=== PATIENT | female | born 1950 | race Caucasian/White ===

== ENCOUNTER 2018-01-10 17:45 | Inpatient (IN) | payer MEDICARE ==
[~2018-01-10] VITALS: Ht 160 cm; Wt 113.4 kg
[~2018-01-10 17:45] MED LIST: AMITRIPTYLINE H10 M3 PO; IMITREX100 MG PO; PANTOPRAZOLE SO40 M1 PO; PREDNISONE 20 M20 M1 PO; PROAIR HFA8.5 GM PO; PROPRANOLOL 1010 MG PO; SINGULAIR 10 MG10 M1 PO; TORADOL 10 MG T10 MG PO
[2018-01-10 17:47] VITALS: BP 163/104
[2018-01-10] MEDS ORDERED: SUMATRIPTAN-NA1 EACH PO (17:55)
[2018-01-10 18:37] LABS: APTT 26.8 Seconds (25.0-31.3); INR 0.9; PROTIME 9.7 Seconds (9.20-11.50)
[2018-01-10 18:42] LABS: ANION GAP 14 mmol/L (7-16); BUN 8 mg/dL (7-18); CALCIUM 9.1 mg/dL (8.5-10.1); CHLORIDE 102 mmol/L (98-107); CO2 22 mmol/L (21-32); CREATININE 1.1 mg/dL (0.6-1.3); GLUCOSE 213 mg/dL (70-99); POTASSIUM 3.6 mmol/L (3.5-5.1); SODIUM 138 mmol/L (136-145)
[2018-01-10 19:00] LABS: ALBUMIN 4.2 g/dL (3.4-5.0); ALKALINE PHOSPHATASE 102 U/L (46-116); CK-MB MASS < 0.5 ng/mL (<0.5-3.6); LIPASE 65 U/L (73-393); MAGNESIUM 1.8 mg/dL (1.8-2.4); NT-PRO BRAIN NAT PEPTIDE 364 pg/mL (<300); SGOT 28 U/L (15-37); SGPT 46 U/L (30-65); TOTAL BILIRUBIN 0.6 mg/dL (<0.1-1.0); TOTAL PROTEIN 8.1 g/dL (6.4-8.2); TROPONIN-I LEVEL <0.06 ng/mL (<0.06)
[2018-01-10 19:26] LABS: ABSOLUTE BASOPHILS 0.1 thou/uL (0.0-0.2); ABSOLUTE LYMPHOCYTES 1.6 thou/uL (0.8-5.3); ABSOLUTE MONOCYTES 0.8 thou/uL (0.0-1.2); ABSOLUTE NEUTROPHILS 9.2 thou/uL (1.6-8.1); BASOPHILS 0.5 %; EOSINOPHILS 0.3 %; HEMATOCRIT 44.7 % (37.0-47.0); HEMOGLOBIN 14.9 gm/dL (12.0-15.0); LYMPHOCYTES 13.6 %; MCHC 33.4 g/dL (28.0-37.0); MCV 89.6 fL (80.0-100.0); MONOCYTES 7.2 %; MPV 9.1 fl. (7.2-11.1); NUCLEATED RBCS 0 /100WBC; PLATELET COUNT* 271 thou/uL (150-400); POLYS 78.4 %; RBC 4.98 mil/uL (4.20-5.00); RDW-CV 13.9 % (10.5-14.5); WBC 11.7 thou/uL (4.0-11.0)
[2018-01-10 21:15] VITALS: BP 126/72
[2018-01-10 21:30] VITALS: BP 156/70
[2018-01-11] VITALS: BP 102/67
[2018-01-11 04:00] VITALS: BP 145/69
[2018-01-11 05:01] LABS: HEMATOCRIT 41.7 % (37.0-47.0); HEMOGLOBIN 14.1 gm/dL (12.0-15.0); MCH 30.5 pg (26.0-34.0); MCHC 33.8 g/dL (28.0-37.0); MCV 90.3 fL (80.0-100.0); MPV 9.1 fl. (7.2-11.1); RBC 4.62 mil/uL (4.20-5.00)
[2018-01-11 05:28] LABS: ALBUMIN 3.1 g/dL (3.4-5.0); CALCIUM 8.3 mg/dL (8.5-10.1); CREATININE 0.9 mg/dL (0.6-1.3); POTASSIUM 3.5 mmol/L (3.5-5.1); TOTAL BILIRUBIN 0.4 mg/dL (<0.1-1.0); TOTAL PROTEIN 6.4 g/dL (6.4-8.2)
[2018-01-11] MEDS ORDERED: TORADOL 10 MG T10 MG PO (06:57)
[2018-01-11 08:44] VITALS: BP 125/59
--- NOTE | 2018-01-11 10:04 | EKG ---
[place] [address] ELECTROCARDIOGRAM REPORT Name: SONIA BURGOS Room: [address] ADM IN .R.#: [id number] Admission: 01/10/18 Attend Phys: Rosalind Serrato MD Discharge: Date of : 48 Report #: [id number] THIS REPORT FOR: //name// [facility] ED Test Date: 2018-01-10 Test Time: 17:50:58 Pat Name: SONIA BRUGOS Department: Room: [facility] Gender: F Biofuels Operations Manager: JEREMY : 1950 Requested By: Randy Dhillon Order Number: [id number] MD: Chucky Felix Measurements Intervals [place] Rate: 160 P: 40 PA: 242 QRS: -20 QRSD: 85 T: 38 QT: 263 QTc: 429 Interpretive Statements Supraventricular tachycardia Multiform ventricular premature complexes Borderline left axis deviation Baseline wander in lead(s) II,aVF,V1,V2 Compared to ECG 04/09/2017 11:29:58 Ventricular premature complex(es) now present Sinus tachycardia no longer present Electronically Signed On 01-11-2018 10:04:35 CDT by Chucky Felix [email or web address] <ELECTRONICALLY SIGNED> By: Chucky Felix MD, FACC 01/11/18 1004 1750 1750 Chucky Felix MD, FACC /EPI
--- NOTE | 2018-01-11 10:06 | EKG ---
[place] [address] ELECTROCARDIOGRAM REPORT Name: SONIA BURGOS Room: [address] ADM IN M.R.#: [id number] Admission: 01/10/18 Attend Phys: Rosalind Serrato MD Discharge: Date of : 48 Report #: [id number] THIS REPORT FOR: //name// [facility] ED Test Date: 2018-01-10 Test Time: 21:02:21 Pat Name: SONIA BURGOS Department: Room: [address] Gender: F Video Coordinator: TIMOTHY : 1950 Requested By: Jorge Harding Order Number: [id number] MD: Chucky Felix Measurements Intervals [place] Rate: 99 P: 0 MN: 165 QRS: -8 QRSD: 75 T: -1 QT: 321 QTc: 412 Interpretive Statements Sinus rhythm Probable left atrial enlargement consider Inferior infarct, old poor r wave progression Baseline wander in lead(s) V4 Electronically Signed On 01-11-2018 10:06:07 CDT by Chucky Felix [email or web address] <ELECTRONICALLY SIGNED> By: Chucky Felix MD, [facility] 01/11/18 1006 01 01 Chucky Felix MD, [facility] /EPI
[2018-01-11 12:14] VITALS: BP 124/51
[2018-01-11 16:00] VITALS: BP 131/64
[2018-01-11 20:00] VITALS: BP 145/67; BP 145/83
[2018-01-12 04:00] VITALS: BP 121/65
[2018-01-12 05:14] LABS: ABSOLUTE EOSINOPHILS 0.1 thou/uL (0.0-0.7); ABSOLUTE MONOCYTES 0.9 thou/uL (0.0-1.2); BASOPHILS 0.4 %; EOSINOPHILS 1.2 %; HEMATOCRIT 41.5 % (37.0-47.0); HEMOGLOBIN 13.6 gm/dL (12.0-15.0); LYMPHOCYTES 16.3 %; MCH 29.9 pg (26.0-34.0); MCHC 32.9 g/dL (28.0-37.0); MCV 90.8 fL (80.0-100.0); MONOCYTES 7.9 %; MPV 9.4 fl. (7.2-11.1); NUCLEATED RBCS 0 /100WBC; PLATELET COUNT* 221 thou/uL (150-400); POLYS 74.2 %; RBC 4.57 mil/uL (4.20-5.00); RDW-CV 14.2 % (10.5-14.5); WBC 12.1 thou/uL (4.0-11.0)
[2018-01-12 05:25] LABS: ANION GAP 12 mmol/L (7-16); BUN 9 mg/dL (7-18); CALCIUM 8.4 mg/dL (8.5-10.1); CHLORIDE 103 mmol/L (98-107); CHOLESTEROL 193 mg/dL (<200); CO2 23 mmol/L (21-32); CREATININE 0.9 mg/dL (0.6-1.3); GLUCOSE 201 mg/dL (70-99); HDL CHOLESTEROL 44 mg/dL (>40); LDL CHOLESTEROL 131 mg/dL (<100); POTASSIUM 3.9 mmol/L (3.5-5.1); SODIUM 138 mmol/L (136-145); TC:HDL 4.4 Ratio (Not establshd); TRIGLYCERIDE 94 mg/dL (<150); VLDL 19 mg/dL (<40)
[2018-01-12 05:27] LABS: SERUM ASSESSMENT Clear
[2018-01-12 08:00] VITALS: BP 131/54
[2018-01-12 12:00] VITALS: BP 145/67
--- NOTE | 2018-01-12 15:43 | EKG ---
[place] [address] ELECTROCARDIOGRAM REPORT Name: SONIA BURGOS Room: [address] ADM IN M.R.#: [id number] Admission: 01/10/18 Attend Phys: Rosalind Serrato MD Discharge: Date of : 48 Report #: [id number] THIS REPORT FOR: //name// [facility] Test Date: 2018-01-11 Test Time: 22:18:32 Pat Name: SONIA BURGOS Department: Room: [address] Gender: F Viticulture Teacher: ALEXANDRA : 1950 Requested By: Rosalind Serrato Order Number: [id number] Reading MD: Ludwig Dc Measurements Intervals [place] Rate: 131 P: 55 NM: 275 QRS: -9 QRSD: 101 T: -29 QT: 335 QTc: 495 Interpretive Statements Sinus tachycardia Prolonged NM interval Low voltage, precordial leads Borderline T abnormalities, diffuse leads Borderline prolonged QT interval Compared to ECG 01/10/2018 21:02:21 First degree AV block now present Low QRS voltage now present T-wave abnormality now present Sinus rhythm no longer present Myocardial infarct finding no longer present Poor R-wave progression no longer present Electronically Signed On 01-12-2018 15:43:37 CDT by Ludwig Dc [email or web address] <ELECTRONICALLY SIGNED> By: Ludwig Dc MD, [facility] 01/12/18 1543 2218 2218 Ludwig Dc MD, [facility] /EPI
--- NOTE | 2018-01-12 15:46 | EKG ---
[place] [address] ELECTROCARDIOGRAM REPORT Name: SONIA BURGOS Room: [address] ADM IN M.R.#: [id number] Admission: 01/10/18 Attend Phys: Rosalind Serrato MD Discharge: Date of : 48 Report #: [id number] THIS REPORT FOR: //name// [facility] Test Date: 2018-01-12 Test Time: 08:54:37 Pat Name: SONIA BURGOS Department: Room: [address] Gender: F Analyst Geochemical Prospecting: : 1950 Requested By: Chucky Felix Order Number: [id number] MD: Ludwig Dc Measurements Intervals [place] Rate: 82 P: 21 ME: 181 QRS: -2 QRSD: 57 T: 18 QT: 431 QTc: 504 Interpretive Statements Sinus rhythm Ventricular premature complex Low voltage, precordial leads Borderline repolarization abnormality Prolonged QT interval Baseline wander in lead(s) II,III,aVR,aVF,V2,V3,V5,V6 Compared to ECG 01/10/2018 21:02:21 Ventricular premature complex(es) now present Low QRS voltage now present Prolonged QT interval now present Poor R-wave progression no longer present Electronically Signed On 01-12-2018 15:46:38 CDT by Ludwig Dc [email or web address] <ELECTRONICALLY SIGNED> By: Ludwig Dc MD, [facility] 01/12/18 1546 0854 0854 Ludwig Dc MD, [facility] /EPI
[2018-01-12 15:51] VITALS: BP 139/47
[2018-01-12 17:18] LABS: INFLUENZA A ANTIGEN None Detected (None Detect); INFLUENZA B ANTIGEN None Detected (None Detect)
[2018-01-12 18:03] VITALS: BP 139/47
[2018-01-12 20:00] VITALS: BP 105/58
[2018-01-13] VITALS: BP 125/59
[2018-01-13 02:11] LABS: GLYCOHEMOGLOBIN (HGB A1C) 7.5 % (4.8-5.6)
[2018-01-13 04:00] VITALS: BP 161/71
[2018-01-13 05:46] LABS: HEMATOCRIT 42.5 % (37.0-47.0); HEMOGLOBIN 14.2 gm/dL (12.0-15.0); MCH 30.3 pg (26.0-34.0); MCHC 33.4 g/dL (28.0-37.0); MCV 90.7 fL (80.0-100.0); MPV 9.6 fl. (7.2-11.1); NUCLEATED RBCS 0 /100WBC; PLATELET COUNT* 231 thou/uL (150-400); RBC 4.69 mil/uL (4.20-5.00); RDW-CV 14.1 % (10.5-14.5); WBC 8.4 thou/uL (4.0-11.0)
[2018-01-13 05:53] LABS: ALBUMIN 3.1 g/dL (3.4-5.0); CALCIUM 8.5 mg/dL (8.5-10.1); CREATININE 0.9 mg/dL (0.6-1.3); POTASSIUM 4.3 mmol/L (3.5-5.1); TOTAL BILIRUBIN 0.2 mg/dL (<0.1-1.0); TOTAL PROTEIN 6.9 g/dL (6.4-8.2)
[2018-01-13 06:09] LABS: ABSOLUTE MONOCYTES 0.1 thou/uL (0.0-1.2); ABSOLUTE NEUTROPHILS 7.3 thou/uL (1.6-8.1)
[2018-01-13 06:10] LABS: ANISOCYTOSIS 1+; PLATELET ESTIMATE ADEQUATE; POIKILOCYTOSIS 1+
[2018-01-13 08:00] VITALS: BP 135/65
--- NOTE | 2018-01-13 11:10 | EKG ---
[place] [address] ELECTROCARDIOGRAM REPORT Name: SONIA BURGOS Room: [address] ADM IN M.R.#: [id number] Admission: 01/10/18 Attend Phys: Rosalind Serrato MD Discharge: Date of : 48 Report #: [id number] THIS REPORT FOR: //name// [facility] Test Date: 2018-01-13 Test Time: 08:29:27 Pat Name: SONIA BURGOS Department: Room: [address] Gender: F Neon Tube Bender: : 1950 Requested By: Chucky Felix Order Number: [id number] Trish MD: Chucky Felix Measurements Intervals [place] Rate: 76 P: 15 AK: 187 QRS: 9 QRSD: 93 T: -2 QT: 379 QTc: 427 Interpretive Statements Sinus rhythm Left atrial enlargement Low voltage, precordial leads Borderline T abnormalities, diffuse leads Compared to ECG 01/12/2018 08:54:37 Atrial abnormality now present Ventricular premature complex(es) no longer present Prolonged QT interval no longer present Electronically Signed On 01-13-2018 11:10:00 CDT by Chucky Felix [email or web address] <ELECTRONICALLY SIGNED> By: Chucky Felix MD, [facility] 01/13/18 1110 8 Chucky Felix MD, [facility] /EPI
[2018-01-13 11:54] VITALS: BP 116/47
[2018-01-13 15:40] VITALS: BP 151/61
[2018-01-13 20:00] VITALS: BP 124/58
[2018-01-14] VITALS: BP 146/66
[2018-01-14 04:00] VITALS: BP 123/62
[2018-01-14 05:37] LABS: HEMOGLOBIN 14.2 gm/dL (12.0-15.0); MCH 30.1 pg (26.0-34.0); MCV 91.2 fL (80.0-100.0); MPV 9.6 fl. (7.2-11.1); NUCLEATED RBCS 0 /100WBC; PLATELET COUNT* 286 thou/uL (150-400); RBC 4.71 mil/uL (4.20-5.00); WBC 19.6 thou/uL (4.0-11.0)
[2018-01-14 06:19] LABS: ALBUMIN 3.3 g/dL (3.4-5.0); CALCIUM 8.9 mg/dL (8.5-10.1); CREATININE 0.9 mg/dL (0.6-1.3); POTASSIUM 3.9 mmol/L (3.5-5.1); TOTAL BILIRUBIN 0.2 mg/dL (<0.1-1.0); TOTAL PROTEIN 7.2 g/dL (6.4-8.2)
[2018-01-14 08:01] LABS: ABSOLUTE MONOCYTES 0.2 thou/uL (0.0-1.2); ABSOLUTE NEUTROPHILS 18.4 thou/uL (1.6-8.1); ATYPICAL LYMPHS 2 %
[2018-01-14 08:02] LABS: PLATELET ESTIMATE ADEQUATE
[2018-01-14] MEDS ORDERED: ASPIRIN325 PO (09:13)
[2018-01-14] MEDS ORDERED: FLECAINIDE ACET50 M1 PO (09:14)
[2018-01-14] MEDS ORDERED: CARDIZEM CD 18180 M3 PO (09:14)
[2018-01-14] MEDS ORDERED: METFORMIN HCL500 MG PO (09:15)
[2018-01-14] MEDS ORDERED: AUGMENTIN 875-1 EACH PO (09:16)
[2018-01-14] MEDS ORDERED: PREDNISONE 10 M10 MG PO (09:17)
[2018-01-14 10:25] VITALS: BP 132/70
--- NOTE | 2018-01-15 13:00 | CON ---
[address] [address] CONSULTATION Name: SONIA BURGOS Room: [address] IN M.R.#: [id number] Admission: 01/10/18 Attend Phys: Rosalind Serrato MD Discharge: 01/14/18 Date of : 48 Report #: [id number] THIS REPORT FOR: //name// CC: Rosalind Mayes DO DATE OF SERVICE: 01/11/2018 HISTORY OF PRESENT ILLNESS: The patient is a 67-year-old single white female who I was asked to see in the hospital today after she was noted to have a narrow complex tachycardia. The history is obtained from the patient. There are no family members available. The patient was actually admitted here to [facility] in April 2017 with an asthma attack. She has been followed by Dr. Fountain. She does use an inhaler. She also snores at night and was told she needed a sleep study, but has never had a sleep study. She does not exercise on a regular basis. She also is overweight, standing 5 feet 3 and weighing 235 pounds. She previously weighed up to 280 pounds. The patient notes she previously lived in [place], but moved to [place] about a year ago. She does note about a month ago, she was at a in [place] when she was admitted with asthma attack. Apparently in the hospital, she had an episode of atrial fibrillation that lasted about 15 minutes. She was given IV magnesium and converted to sinus rhythm. She was discharged on no cardiac medications. Yesterday, she was mowing the yard when she suddenly felt weak and her heart was beating fast. She went to urgent care and was sent over to the Emergency Room here at [facility] [place] [facility]. In the Emergency Room, she was noted to be in a narrow complex tachycardia that was regular at 160 beats per minute. This is felt to represent a supraventricular tachycardia. She was given 6 mg of adenosine and had an episode of complete heart block, but then converted to sinus rhythm. I was asked to see her for further evaluation and treatment. She does note occasional skipped heartbeats, but has had no prolonged palpitations or syncope. She denies exertional dyspnea. She does become short of breath with exertion. PAST MEDICAL HISTORY: Otherwise, she has had previous cholecystectomy, hysterectomy, tonsillectomy, appendectomy. She has a history of trigeminal neuralgia. She has had occipital nerve surgery. She has glucose intolerance, but no history of hypertension or diabetes. MEDICATIONS: Include Sumatriptan as needed for headaches, Toradol as needed. She is on Breo inhaler. ALLERGIES: SHE HAS INTOLERANCE TO CODEINE. FAMILY HISTORY: Her mother had a stent. SOCIAL HISTORY: She is , lives in [place] with [place] son[place] [address] CONSULTATION Name: SONIA BURGOS Room: [address] IN [facility].#: [id number] Admission: 01/10/18 Attend Phys: Rosalind Serrato MD Discharge: 01/14/18 Date of : 48 Report #: [id number] alcohol abuse. Does not use much caffeine. 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 REVIEW OF SYSTEMS: She has had no history of stroke. No history of peptic ulcer disease, liver disease, kidney disease or cancer. She has a history of depression, saw a psychiatrist in the past. She does have psoriasis. PHYSICAL EXAMINATION: GENERAL: Revealed a middle-aged female, appeared in mild distress secondary to headache and coughing. VITAL SIGNS: She had a blood pressure 130/60, pulse is 80, she was afebrile. HEENT: She was anicteric, conjunctivae pink. Mucous members moist. NECK: Veins difficult to assess due to obesity. No carotid bruits heard. CHEST: Revealed coarse breath sounds. CARDIAC: Regular rate and rhythm, no murmur. ABDOMEN: Obese. EXTREMITIES: Had no pitting edema. Dorsalis pedis pulse 2+ bilaterally. SKIN: Warm and dry. NEUROLOGIC: Nonfocal. IMAGING: ECG on admission showed a narrow complex tachycardia, nonspecific ST-segment changes, poor R-wave progression, occasional PVC. After the patient converted, her 12-lead ECG showed sinus rhythm, normal intervals and axis, poor R-wave progression. On her workup yesterday, she had a chest x-ray that showed normal heart size, clear lung dooley. She actually had a CT scan of the chest using a PE protocol that showed no pulmonary embolus and only atelectasis. LAB WORK: Sodium 139, creatinine 0.9. Liver function studies were normal. Troponin 0.06. TSH was 2.3. White blood cell count 9.0, hemoglobin 14.1. IMPRESSION AND RECOMMENDATIONS: 1. Atrial arrhythmias. The patient has a history of atrial fibrillation. Yesterday, she appeared to have a supraventricular tachycardia, converted with adenosine. The patient apparently was given a beta-chicho in the past for migraine headaches, but developed bradycardia. At this time, I would recommend starting the patient on flecainide and Cardizem. I would hold off anticoagulation at this time. 2. History of asthma. 3. Migraine headaches. 4. Trigeminal neuralgia. 5. Obesity. [address] [address] CONSULTATION Name: SONIA BURGOS Room: [address] IN M.R.#: [id number] Admission: 01/10/18 Attend Phys: Rosalind Serrato MD Discharge: 01/14/18 Date of : 48 Report #: [id number] 6. Suspect sleep apnea. 7. History of depression. <ELECTRONICALLY SIGNED> By: Ludwig Dc MD, FACC 01/15/18 1300 0929 1603Dkamala Felix MD, FACC /nt
== END 2018-01-14 12:05 | disposition home or self-care (01) | DRG 202 ==
LOC: M.ERS 17:45 → M.2W 18:27 → M.TBA-ER 18:27 → M.2W 19:58
PROVIDERS: Family Medicine; Internal Medicine; Internal Medicine Cardiovascular Disease; ADMIT Internal Medicine
DX: J20.9 Acute bronchitis, unspecified (principal); R65.10 Systemic inflammatory response syndrome (SIRS) of non-infectious origin without acute organ dysfunction; J98.11 Atelectasis; I47.1 Supraventricular tachycardia; J45.901 Unspecified asthma with (acute) exacerbation; Z68.41 Body mass index [BMI] 40.0-44.9, adult; I48.91 Unspecified atrial fibrillation; E66.01 Morbid (severe) obesity due to excess calories; G43.809 Other migraine, not intractable, without status migrainosus; G50.0 Trigeminal neuralgia; I49.9 Cardiac arrhythmia, unspecified; F32.9 Major depressive disorder, single episode, unspecified; J44.9 Chronic obstructive pulmonary disease, unspecified; E11.65 Type 2 diabetes mellitus with hyperglycemia; J02.9 Acute pharyngitis, unspecified; Z90.710 Acquired absence of both cervix and uterus; Z79.899 Other long term (current) drug therapy; Z88.6 Allergy status to analgesic agent; Z90.49 Acquired absence of other specified parts of digestive tract; Z90.89 Acquired absence of other organs; Z80.1 Family history of malignant neoplasm of trachea, bronchus and lung

== ENCOUNTER 2018-05-14 03:15 | Emergency (ER) | payer MEDICARE ==
[~2018-05-14] VITALS: Ht 160 cm; Wt 104.3 kg
[~2018-05-14 03:15] MED LIST changes: +ASPIRIN325 PO; +AUGMENTIN 875-1 EACH PO; +CARDIZEM CD 18180 M3 PO; +FLECAINIDE ACET50 M1 PO; +METFORMIN HCL500 MG PO; +PREDNISONE 10 M10 MG PO; +SUMATRIPTAN-NA1 EACH PO
[2018-05-14 03:43] LABS: ABSOLUTE BASOPHILS 0.1 thou/uL (0.0-0.2); ABSOLUTE EOSINOPHILS 0.3 thou/uL (0.0-0.7); ABSOLUTE LYMPHOCYTES 3.2 thou/uL (0.8-5.3); ABSOLUTE MONOCYTES 0.7 thou/uL (0.0-1.2); ABSOLUTE NEUTROPHILS 5.6 thou/uL (1.6-8.1); BASOPHILS 0.8 %; EOSINOPHILS 3.4 %; HEMATOCRIT 45.7 % (37.0-47.0); HEMOGLOBIN 15.7 gm/dL (12.0-15.0); LYMPHOCYTES 32.5 %; MCH 30.6 pg (26.0-34.0); MCHC 34.3 g/dL (28.0-37.0); MCV 89.2 fL (80.0-100.0); MONOCYTES 6.7 %; NUCLEATED RBCS 0 /100WBC; PLATELET COUNT* 262 thou/uL (150-400); POLYS 56.6 %; RBC 5.13 mil/uL (4.20-5.00); RDW-CV 14.7 % (10.5-14.5); WBC 9.8 thou/uL (4.0-11.0)
[2018-05-14 03:52] LABS: ANION GAP 8 mmol/L (7-16); BUN 11 mg/dL (7-18); CALCIUM 9.4 mg/dL (8.5-10.1); CHLORIDE 104 mmol/L (98-107); CO2 28 mmol/L (21-32); CREATININE 1.2 mg/dL (0.6-1.3); GLUCOSE 196 mg/dL (70-99); POTASSIUM 5.1 mmol/L (3.5-5.1); SODIUM 140 mmol/L (136-145)
[2018-05-14 03:54] LABS: INR 0.9; PROTIME 9.4 Seconds (9.20-11.50)
[2018-05-14 04:04] LABS: ALBUMIN 3.6 g/dL (3.4-5.0); ALKALINE PHOSPHATASE 100 U/L (46-116); NT-PRO BRAIN NAT PEPTIDE 142 pg/mL (<300); SGOT 20 U/L (15-37); SGPT 36 U/L (30-65); TOTAL BILIRUBIN 0.1 mg/dL (<0.1-1.0); TOTAL PROTEIN 7.2 g/dL (6.4-8.2); TROPONIN-I LEVEL <0.06 ng/mL (<0.06)
[2018-05-14] MEDS ORDERED: LOPRESSOR25 PO (04:22)
[2018-05-14 04:40] VITALS: BP 130/72
--- NOTE | 2018-05-14 13:51 | EKG ---
[place] [address] ELECTROCARDIOGRAM REPORT Name: [id number] Admission: 05/14/18 Attend Phys: Discharge: 05/14/18 Date of : 48 Report #: [id number] THIS REPORT FOR: //name// [facility] ED Test Date: 2018-05-14 Test Time: 03:24:22 Pat Name: SONIA GILENDINE Department: Room: Gender: F Invoicing Specialist: Danelle LLAMAS : 1950 Requested By: Giovanna Butler Order Number: [id number] MD: Aristides Nevarez Measurements Intervals [place] Rate: 147 P: 0 HI: 104 QRS: 0 QRSD: 95 T: 30 QT: 340 QTc: 532 Interpretive Statements Sinus tachycardia Ventricular premature complex Low voltage, precordial leads Consider anterior infarct ST depression, probably rate related Prolonged QT interval Ventricular premature complex(es) now present ST (T wave) deviation now present Prolonged QT interval now present Sinus rhythm no longer present Atrial abnormality no longer present T-wave abnormality no longer present Electronically Signed On 05-14-2018 13:50:52 PROPAGATOR by Aristides Nevarez [email or web address] <ELECTRONICALLY SIGNED> By: Aristides Nevarez MD, FACC 05/14/18 1350 0324 0324 Aristides Nevarez MD, FAC /EPI
--- NOTE | 2018-05-14 13:51 | EKG ---
[place] [address] ELECTROCARDIOGRAM REPORT Name: SONIA BURGOS Room: [facility]#: [id number] Admission: 05/14/18 Attend Phys: Discharge: 05/14/18 Date of : 48 Report #: [id number] THIS REPORT FOR: //name// [facility] ED Test Date: 2018-05-14 Test Time: 03:30:32 Pat Name: SONIA BURGOS Department: Room: Gender: F Apron Cleaner: Danelle LLAMAS : 1950 Requested By: Giovanna Butler Order Number: [id number] Reading MD: Aristides Nevarez Measurements Intervals [place] Rate: 107 P: 12 NV: 199 QRS: 7 QRSD: 74 T: 13 QT: 322 QTc: 430 Interpretive Statements Sinus tachycardia Probable left atrial enlargement Anterior infarct, old Compared to ECG 01/13/2018 08:29:27 Myocardial infarct finding now present Sinus rhythm no longer present T-wave abnormality no longer present Electronically Signed On 05-14-2018 13:50:58 CONCRETE SWIMMING POOL INSTALLER by Aristides Nevarez [email or web address] <ELECTRONICALLY SIGNED> By: Aristides Nevarez MD, FACC 05/14/18 1350 0330 0330 Aristides Nevarez MD, [facility] /EPI
== END 2018-05-14 04:40 | disposition home or self-care (01) ==
LOC: M.ERS 03:15
PROVIDERS: Emergency Medicine
DX: I47.1 Supraventricular tachycardia (principal); J45.909 Unspecified asthma, uncomplicated; E66.01 Morbid (severe) obesity due to excess calories; Z68.41 Body mass index [BMI] 40.0-44.9, adult; Z90.710 Acquired absence of both cervix and uterus; Z88.5 Allergy status to narcotic agent

== ENCOUNTER 2018-12-08 09:52 | Emergency (ER) | payer MEDICARE ==
[~2018-12-08] VITALS: Ht 157.5 cm; Wt 136.1 kg
[~2018-12-08 09:52] MED LIST changes: +LOPRESSOR25 PO
[2018-12-08 10:31] LABS: ABSOLUTE BASOPHILS 0.1 thou/uL (0.0-0.2); ABSOLUTE EOSINOPHILS 0.4 thou/uL (0.0-0.7); ABSOLUTE LYMPHOCYTES 2.5 thou/uL (0.8-5.3); ABSOLUTE MONOCYTES 0.8 thou/uL (0.0-1.2); ABSOLUTE NEUTROPHILS 4.4 thou/uL (1.6-8.1); BASOPHILS 0.7 %; EOSINOPHILS 5.2 %; HEMATOCRIT 43.2 % (37.0-47.0); HEMOGLOBIN 14.6 gm/dL (12.0-15.0); LYMPHOCYTES 29.9 %; MCHC 33.8 g/dL (28.0-37.0); MCV 88.8 fL (80.0-100.0); MONOCYTES 10.1 %; MPV 8.8 fl. (7.2-11.1); NUCLEATED RBCS 0 /100WBC; PLATELET COUNT* 242 thou/uL (150-400); POLYS 54.1 %; RBC 4.87 mil/uL (4.20-5.00); RDW-CV 14.2 % (10.5-14.5); WBC 8.2 thou/uL (4.0-11.0)
[2018-12-08 10:43] LABS: ANION GAP 9 mmol/L (7-16); BUN 8 mg/dL (7-18); CALCIUM 8.9 mg/dL (8.5-10.1); CHLORIDE 101 mmol/L (98-107); CO2 26 mmol/L (21-32); GLUCOSE 184 mg/dL (70-99); POTASSIUM 3.7 mmol/L (3.5-5.1); SODIUM 136 mmol/L (136-145)
[2018-12-08 10:46] LABS: BE -1.5 mmol/L (-2 to +3); PCO2 36.1 mmHg (35.0-45.0); pH 7.412 (7.340-7.450)
[2018-12-08 10:50] LABS: PO2 165.4 mmHg (75.0-100.0)
[2018-12-08 10:54] LABS: ALBUMIN 3.5 g/dL (3.4-5.0); ALKALINE PHOSPHATASE 88 U/L (46-116); MAGNESIUM 1.9 mg/dL (1.8-2.4); NT-PRO BRAIN NAT PEPTIDE 91 pg/mL (<300); SGOT 18 U/L (15-37); SGPT 34 U/L (30-65); TOTAL BILIRUBIN 0.3 mg/dL (<0.1-1.0); TOTAL PROTEIN 6.9 g/dL (6.4-8.2); TROPONIN-I LEVEL <0.06 ng/mL (<0.06)
[2018-12-08] MEDS ORDERED: PREDNISONE 10 M10 M1 PO (11:42)
[2018-12-08] MEDS ORDERED: IPRAT-ALBUT 0.5-3 ML INH (11:42)
[2018-12-08] MEDS ORDERED: AZITHROMYCIN 2250 MG PO (11:42)
[2018-12-08] MEDS ORDERED: LEVALBUTER1.25 MG/0. INH (11:42)
[2018-12-08 12:25] VITALS: BP 128/74
--- NOTE | 2018-12-08 15:30 | EKG ---
[place] [address] ELECTROCARDIOGRAM REPORT Name: SONIA BURGOS FRANK [id number] Admission: 12/08/18 Attend Phys: Discharge: 12/08/18 Date of : 48 Report #: [id number] THIS REPORT FOR: //name// [facility] ED Test Date: 2018-12-08 Test Time: 09:58:08 Pat Name: SONIA BURGOS Department: Room: Gender: F Data Deliverables Manager: TIESHA : 1950 Requested By: Litzy Aldridge Order Number: [id number] MD: Chucky Felix Measurements Intervals [place] Rate: 112 P: 17 CT: 153 QRS: 0 QRSD: 84 T: 19 QT: 332 QTc: 453 Interpretive Statements Sinus tachycardia Probable left atrial enlargement Anterior infarct, old Baseline wander in lead(s) I,III,aVR,aVL,aVF,V1 Compared to ECG 06/19/2018 15:32:51 Myocardial infarct finding still present Electronically Signed On 12-08-2018 15:30:22 CDT by Chucky Felix [email or web address] <ELECTRONICALLY SIGNED> By: Chucky Felix MD, [facility] 12/08/18 1530 0958 0958 Chucky Felix MD, [facility] /EPI
== END 2018-12-08 12:33 | disposition home or self-care (01) ==
LOC: M.ERS 09:52
PROVIDERS: Personal Emergency Response Attendant
DX: J45.909 Unspecified asthma, uncomplicated (principal); J06.9 Acute upper respiratory infection, unspecified; R00.0 Tachycardia, unspecified; G43.909 Migraine, unspecified, not intractable, without status migrainosus; E66.9 Obesity, unspecified; Z68.43 Body mass index [BMI] 50.0-59.9, adult; Z88.5 Allergy status to narcotic agent; Z88.8 Allergy status to other drugs, medicaments and biological substances; Z90.710 Acquired absence of both cervix and uterus; Z98.890 Other specified postprocedural states